=== PATIENT | male | born 1965 | race Caucasian/White ===

== ENCOUNTER 2021-08-31 01:25 | Emergency (ER) | payer BC ==
[2021-08-31] MEDS ORDERED: Dicyclomine 20 MG TAB ONE (01:54)
[2021-08-31] MEDS ORDERED: Ondansetron ODT 4 MG TAB ONE ×2 (01:54→02:02)
== END 2021-08-31 02:26 | disposition home or self-care (01) ==
LOC: BURERS 01:25
DX: A08.4 Viral intestinal infection, unspecified (principal); E03.9 Hypothyroidism, unspecified; I10 Essential (primary) hypertension
CPT/HCPCS: 99283; Q0162